=== PATIENT | female | born 1960 | race Caucasian/White ===

== ENCOUNTER 2016-07-07 11:21 | Observation (INO) | payer BC ==
[2016-07-07] MEDS ORDERED: LIDOCAINE 1% 5 ML SDV ID PRN (12:09)
[2016-07-07] MEDS ORDERED: LR 1,000 ML IV ONE (12:09)
[2016-07-07] MEDS ORDERED: LIDOCAINE 1% 5 ML SDV ONE (12:10)
[2016-07-07] MEDS ORDERED: ceFAZolin 2 GM/DEXTROSE 100 ML IV ONE (12:30)
[2016-07-07] MEDS ORDERED: SKIN ADHESIVE (DERMABOND) 1 EACH TP ONE (12:39)
[2016-07-07] MEDS ORDERED: THROMBIN (RECOMBINANT) 5,000 UNIT VIAL TP ONE (12:40)
[2016-07-07] MEDS ORDERED: BUPIVACAINE 0.25% 30 ML SDV ONE (12:40)
[2016-07-07] MEDS ORDERED: ONDANSETRON 4 MG/2 ML VIAL ONE (12:44)
[2016-07-07] MEDS ORDERED: DEXAMETHASONE 4 MG/ML VIAL ONE (12:44)
[2016-07-07] MEDS ORDERED: LIDOCAINE 2% 100 MG/5 ML SYR IVP ONE (12:44)
[2016-07-07] MEDS ORDERED: PROPOFOL 200 MG/20 ML VIAL ONE (12:44)
[2016-07-07] MEDS ORDERED: ROCURONIUM 50 MG/5 ML VIAL ONE (12:44)
[2016-07-07] MEDS ORDERED: fentaNYL 250 MCG/5 ML INJ ONE (12:44)
[2016-07-07] MEDS ORDERED: MIDAZOLAM 2 MG/2 ML VIAL ONE (12:45)
[2016-07-07] MEDS ORDERED: PHENYLEPHRINE HCL 100 MCG/ML SYR ONE (13:23)
[2016-07-07] MEDS ORDERED: ceFAZolin 2 GM/DEXTROSE 100 ML IV SCH (14:00)
[2016-07-07] MEDS ORDERED: HYDROCOD/APAP 7.5/325 IN 15ML UDCUP PO PRN (15:20)
[2016-07-07] MEDS ORDERED: ONDANSETRON 4 MG/2 ML VIAL IVP PRN (15:20)
[2016-07-07] MEDS ORDERED: HYDROCODONE/APAP 5/325 TAB PO PRN (15:29)
--- NOTE | 2016-07-07 15:39 | POSTOPPROG ---
Post Op Note Date of Operation: 07/07/16 Surgeon: Danny Kan (, FACS) Robotic Welder: Altagracia Pastor MD Anesthesiologist: Salinas Washington MD Anesthesia: GET(General Endotracheal) Pre-op Diagnosis: papillary CA left thyroid (T1N1) Post-op Diagnosis: same Indication: completion thyroidectomy Procedure: completion right thyroid lobectomy Findings: # [id number] Dictated Inf/Abcess present in the surg proc area at time of surgery?: No EBL: Minimal Complications: none Specimen(s): right thyroid lobe
[2016-07-07] MEDS ORDERED: fentaNYL 100 MCG/2 ML INJ ONE (15:43)
[2016-07-07] MEDS ORDERED: BACITRACIN OINTMENT 1 PACKET TP ONE (18:03)
[2016-07-07] MEDS ORDERED: hydrALAZINE 20 MG/ML VIAL IVP PRN (19:31)
[2016-07-07] MEDS: HYDROCOD/APAP 7.5/325 IN 15ML UDCUP PO PRN (20:05)
[2016-07-07] MEDS ORDERED: LISINOPRIL 10 MG TAB PO SCH (21:00)
[2016-07-07] MEDS: SENNOSIDES/DOCUSATE SODIUM TAB PO SCH (21:10)
[2016-07-07] MEDS: CALCIUM CARBONATE 500 MG CHEWABLE TAB PO SCH (21:10)
[2016-07-07] MEDS: DEXAMETHASONE 4 MG/ML VIAL IVP SCH (21:13)
--- NOTE | 2016-07-07 22:42 | GOP ---
[f rep st] OPERATIVE REPORT DATE OF OPERATION: 07/07/2016 SURGEON: Danny Kan MD, FACS TAXATION ACCOUNTANT: Altagracia Pastor MD ANESTHESIA: General endotracheal. ANESTHESIOLOGIST: Salinas Washington MD. PREOPERATIVE DIAGNOSIS: 1. Left thyroid papillary carcinoma (T1 N1), status post left thyroid lobectomy and central neck dissection. 2. Status post parathyroidectomy. POSTOPERATIVE DIAGNOSIS: 1. Left thyroid papillary carcinoma (T1 N1), status post left thyroid lobectomy and central neck dissection. 2. Status post parathyroidectomy. PROCEDURE PERFORMED: Completion right thyroid lobectomy. FINDINGS: Remaining thyroid lobe with small benign-appearing nodule in the inferior pole, otherwise no significant pathologic features. Significant scar tissue related to the patient's prior surgery. ESTIMATED BLOOD LOSS: 25 mL. DESCRIPTION OF PROCEDURE: After informed consent was obtained, the patient was brought to the operating room and placed under general anesthesia. The NIM tube was placed for intraoperative monitoring of the 10th cranial nerve. The neck was prepped and draped in the usual fashion. Before proceeding, a time- out and identification of the patient was performed. 0.25% Marcaine was used to infiltrate the prior incision site. This was incised with a scalpel and dissection carried down through the platysmal plane. Flaps were elevated cephalad to the cricothyroid and inferiorly to the suprasternal notch. Strap muscles could not be readily recognized overlying the trachea. The midline was approximated, incised, and the strap muscles were peeled off the anterior border of the trachea to the right of midline. The thyroid was intercepted deep to this bed of scar tissue and strap muscle, which was slowly dissected away from this underlying thyroid. Slow, careful, blunt dissection was performed, and small vessels were divided with the Harmonic scalpel and/or secured with hemoclips or bipolar cautery. The superior pole vessels were identified and taken down with the Harmonic scalpel. The largest was hemoclipped. The gland was dissected along the inferior border, and medially a significant desmoplastic reaction persisted, making lateral dissection difficult and somewhat treacherous. As the thyroid was from the trachea medially, it was dissected along this virgin plane toward Ho 's ligament. The superficial portion of the thyroid was delivered from the field in this fashion, and this left a small portion of thyroid tissue at the level of Ho ligament and posterior. This is where the recurrent laryngeal nerve had previously been noted to pass, could not be readily identified with the nerve stimulator. The gland was retracted medially, and the Ho ligament was released along the tracheal edge. The remaining thyroid tissue was bluntly dissected away from the scar tissue adjacent to it without direct visualization of the nerve. After this remaining thyroid tissue was removed and submitted as a separate specimen, right lobe deep, the operative field was inspected for hemostasis, which appeared secure. A small portion of Surgicel was placed into the operative bed. Strap muscles were approximated with 3-0 Vicryl suture. Subcutaneous tissues and platysma were closed with 3-0 Monocryl suture. Skin was closed with 4-0 Monocryl suture in a subcuticular fashion. Mastisol and Steri-Strips were applied. Needle, sponge, and instrument counts were correct. COMPLICATIONS: None. /[id number]/MODL MTDD
[2016-07-08] MEDS: DEXAMETHASONE 4 MG/ML VIAL IVP SCH (05:21)
[2016-07-08] MEDS: HYDROCOD/APAP 7.5/325 IN 15ML UDCUP PO PRN (05:28)
[2016-07-08 05:52] LABS: CALCIUM 9.5 mg/dL (8.5-10.4)
[2016-07-08] MEDS ORDERED: LEVOTHYROXINE 75 MCG TAB PO SCH ×2 (06:00→09:00)
[2016-07-08 06:03] LABS: PTH INTACT NO MINERALS 29.6 pg/ml (10.8-79.4)
[2016-07-08] MEDS ORDERED: CHOLECALCIFEROL VIT D3 2,000 UNITS TAB/CAP PO SCH (09:00)
[2016-07-08] MEDS ORDERED: ENOXAPARIN 40 MG/0.4 ML SYR SC SCH (09:00)
[2016-07-08] MEDS: CALCIUM CARBONATE 500 MG CHEWABLE TAB PO SCH (09:38)
[2016-07-08] MEDS: SENNOSIDES/DOCUSATE SODIUM TAB PO SCH (09:38)
--- NOTE | 2016-07-08 11:15 | PDDCSUM ---
Discharge Summary Discharge Summary: DOA: 07/07/16 DOD: 07/08/16 DC Dx: papillary carcinoma thyroid hyperparathyroidisms s/p parathyroidectomy HTN Procedure: 07/07/16 completion thyroidectomy DC Meds: Synthroid 125mcg po qDay Lisinopril 10 mg po q day Prospect 5/325 #20 Senokot S 1 po BID vit D3 2000 IU/day CaCarbonate 1 po qday Course: Sabi was admitted for completion thyroidectomy after prior partial thyroidectomy during parathyroidectomy 05/26/16. She had a benign left lobe adenoma, however, in the adjacent thyroid tissue she was found to have a small ( 6mm) papillary carcinoma and 1 lymph node showed micrometastasis. Completion thyroidectomy was performed under general anesthesia with NIMS monitoring. She had normal Ca++ and PTH post op and was increased to 125 mcg Synthroid daily. She was discharged the morning after surgery and will follow up with my office in 1-2 weeks. At time of discharge she was ambulatory, afebrile and tolerating oral meds. Her incision site was uncomplicated and her voice was normal Dilcia Kan MD, FACS
[2016-07-08 11:28] VITALS: BP 116/82; PULSE 100; RESP 18; TEMP 98.2; O2SAT 92
[2016-07-09] MEDS ORDERED: LEVOTHYROXINE 125 MCG TAB PO SCH (06:00)
== END 2016-07-08 12:13 | disposition home or self-care (01) ==
LOC: F3N 11:21 → F3E 12:03
PROVIDERS: ADMIT Surgery; ATTEND Surgery
PROC: 0GTH4ZZ Resection of Right Thyroid Gland Lobe, Percutaneous Endoscopic Approach (ICD-10-PCS; principal; 2016-07-07 13:00)
DX: C73 Malignant neoplasm of thyroid gland (principal); I10 Essential (primary) hypertension; E89.2 Postprocedural hypoparathyroidism; Z87.891 Personal history of nicotine dependence
CPT/HCPCS: 60210; G0378; J0690; J1100; J1650; J2001; J2250; J2370; J2405; J2704; J3010

== ENCOUNTER → 2016-12-18 | Outpatient (CLI) | payer BC | LOC: FIMAGING 13:42 | PROVIDERS: ATTEND Internal Medicine Endocrinology, Diabetes & Metabolism | PROC: CW7 Nuclear Medicine, Anatomical Regions, Systemic Nuclear Medicine Therapy (ICD-10-PCS; principal; 2016-12-18) | DX: C73 Malignant neoplasm of thyroid gland (principal) | CPT/HCPCS: A9517 ==

== ENCOUNTER → 2017-07-11 | Outpatient (CLI) | payer BC | LOC: FIMAGING 10:22 | PROVIDERS: ATTEND Internal Medicine Endocrinology, Diabetes & Metabolism | DX: E04.1 Nontoxic single thyroid nodule (principal); C73 Malignant neoplasm of thyroid gland ==

== ENCOUNTER → 2017-07-24 | Outpatient (CLI) | payer BC ==
[~2017-07-24] MED LIST: LIDOCAINE 1% 300 MG/30 ML SDV ONE
== END ==
LOC: FIMAGING 11:28
PROVIDERS: ATTEND Internal Medicine Endocrinology, Diabetes & Metabolism
PROC: 0GBG3ZX Excision of Left Thyroid Gland Lobe, Percutaneous Approach, Diagnostic (ICD-10-PCS; principal; 2017-07-24)
DX: D34 Benign neoplasm of thyroid gland (principal); C73 Malignant neoplasm of thyroid gland

== ENCOUNTER → 2018-04-03 | Outpatient (CLI) | payer BC | LOC: FIMAGING 10:38 | PROVIDERS: ATTEND Internal Medicine Endocrinology, Diabetes & Metabolism | DX: Z08 Encounter for follow-up examination after completed treatment for malignant neoplasm (principal); L90.5 Scar conditions and fibrosis of skin; Z90.89 Acquired absence of other organs; Z85.850 Personal history of malignant neoplasm of thyroid ==